=== PATIENT | female | born 2000 ===

== ENCOUNTER 2024-02-08 07:40 | Observation (INO) ==
[2024-02-08] MEDS ORDERED: IOPAMIDOL 100 ML BOTTLE IV ONE (07:41)
[2024-02-08] MEDS: KETOROLAC 15 MG/ML VIAL IV ONE (08:12)
[2024-02-08 08:15] LABS: Basophils # (Auto) 0.02 K/mcL (0.00-0.30); Basophils % (Auto) 0.1 % (0.0-2.0); Eosinophils # (Auto) 0.01 K/mcL (0.00-0.70); Eosinophils % (Auto) 0 % (0.0-7.0); Hematocrit 41.2 % (34.1-44.9); Hemoglobin 13.6 g/dL (11.2-15.7); Lymphocytes # (Auto) 1.75 K/mcL (1.50-4.80); Lymphocytes % (Auto) 6.5 % (15.5-49.0); Mean Cell Volume 87.5 fL (80.0-100.0); Monocytes # (Auto) 1.32 K/mcL (0.10-0.90); Monocytes % (Auto) 4.9 % (1.0-12.0); Neutrophils % (Auto) 88.1 % (38.0-78.0); Platelet Count 302 K/mcL (140-440); RBC 4.71 M/mcL (3.59-5.38); Red Cell Distribution Width 12.3 % (11.5-14.5)
[2024-02-08 08:42] LABS: ALT/SGPT < 5 U/L (<40); AST/SGOT 11 U/L (<32); Albumin 4.1 gm/dL (3.2-5.2); Alkaline Phosphatase 76 U/L (39-117); Blood Urea Nitrogen 16 mg/dL (6-20); Calcium 9.8 mg/dL (8.6-10.4); Carbon Dioxide 24 mmol/L (22-30); Chloride 98 mmol/L (96-108); Globulin 4.3 gm/dL (2.2-3.7); Glomerular Filtration Rate 91; Glucose 113 mg/dL (70-105); Potassium 3.8 mmol/L (3.3-5.1); Sodium 134 mmol/L (133-145)
[2024-02-08] MEDS: PIPERACILLIN SODIUM/TAZOBACTAM 4.5 GM in DEXTROSE 5% IN WATER 50 ML IV ONE (09:22)
[2024-02-08] MEDS: AMPICILLIN SODIUM/SULBACTAM NA 3 GM in 0.9 % SODIUM CHLORIDE 100 ML IV SCH (09:42)
[2024-02-08] MEDS: 0.9 % SODIUM CHLORIDE 100 ML IV ONE (09:42)
[2024-02-08] MEDS: morphine 4 MG/ML VIAL IV ONE (09:46)
[2024-02-08] MEDS: HYDROmorphone 0.5 MG/0.5 ML SYRINGE IV ONE (11:05)
[2024-02-08] MEDS ORDERED: PROPOFOL 200 MG/20 ML VIAL IV ONE (11:18)
[2024-02-08] MEDS ORDERED: KETAMINE 50 MG/ML Syringe IV ONE (11:18)
[2024-02-08] MEDS ORDERED: ROCURONIUM 10 MG/ML ML IV ONE (11:19)
[2024-02-08] MEDS ORDERED: ONDANSETRON 4 MG/2 ML VIAL ONE (11:19)
[2024-02-08] MEDS ORDERED: DEXAMETHASONE 10 MG/ML VIAL ONE (11:19)
[2024-02-08] MEDS ORDERED: LIDOCAINE 2% PF 5 ML VIAL ONE (11:19)
[2024-02-08] MEDS: LIDOCAINE W/EPI 1% 20 ML VIAL IJ ONE (11:50)
[2024-02-08] MEDS ORDERED: DROPERIDOL 5 MG/2 ML VIAL IV PRN (11:59)
[2024-02-08] MEDS ORDERED: diphenhydrAMINE 50 MG/ML VIAL IV PRN (11:59)
[2024-02-08] MEDS ORDERED: NALOXONE HCL 0.4 MG/ML VIAL IV PRN (11:59)
[2024-02-08] MEDS ORDERED: ONDANSETRON 4 MG/2 ML VIAL IV PRN (11:59)
[2024-02-08] MEDS ORDERED: fentaNYL 100 MCG/2 ML VIAL IV PRN (11:59)
[2024-02-08] MEDS ORDERED: LACTATED RINGERS 250 ML IV PRN (11:59)
[2024-02-08] MEDS ORDERED: MEPERIDINE 25 MG/ML VIAL IV PRN (11:59)
[2024-02-08] MEDS ORDERED: HYDROmorphone 0.5 MG/0.5 ML SYRINGE IV PRN (11:59)
[2024-02-08] MEDS ORDERED: SUGAMMADEX SODIUM 200 MG/2 ML VIAL IV ONE (12:02)
[2024-02-08] MEDS: ACETAMINOPHEN 1,000 MG/100 ML BAG IV ONE (12:18)
[2024-02-08] MEDS: IPRATROPIUM/ALBUTEROL 3 ML AMPUL.NEB NEB PRN (12:20)
[2024-02-08] MEDS: DIAZEPAM 10 MG/2 ML SYRINGE IV ONE (12:35)
[2024-02-08] MEDS: KETOROLAC 30 MG/ML VIAL IV PRN (12:44)
[2024-02-08] MEDS: HYDROcodone/APAP 7.5MG/15ML 15 ML UDC PO PRN ×2 (13:26→19:05)
[2024-02-08] MEDS: LACTATED RINGERS 1,000 ML IV SCH (13:39)
[2024-02-08] MEDS: DIAZEPAM 10 MG/2 ML SYRINGE ONE (13:51)
[2024-02-08] MEDS ORDERED: SENNOSIDES 1 TABLET PO PRN (14:51)
[2024-02-08] MEDS ORDERED: POLYETHYLENE GLYCOL 3350 17 GM PACKET PO PRN (14:51)
[2024-02-08] MEDS ORDERED: ACETAMINOPHEN 325 MG TABLET PO PRN (14:51)
[2024-02-08] MEDS: morphine 4 MG/ML VIAL IV PRN (20:00)
[2024-02-08] MEDS: ONDANSETRON 4 MG/2 ML VIAL IV PRN (20:04)
[2024-02-08] MEDS: OSELTAMIVIR PHOSPHATE 75 MG CAPSULE PO SCH (20:04)
[2024-02-08] MEDS: 0.9 % SODIUM CHLORIDE 10 ML SYRINGE IV SCH (21:38)
[2024-02-08] MEDS: KETOROLAC 15 MG/ML VIAL IV SCH (23:12)
[2024-02-09 06:45] LABS: Basophils # (Auto) 0.01 K/mcL (0.00-0.30); Basophils % (Auto) 0 % (0.0-2.0); Eosinophils # (Auto) 0 K/mcL (0.00-0.70); Eosinophils % (Auto) 0 % (0.0-7.0); Hematocrit 37.7 % (34.1-44.9); Lymphocytes # (Auto) 1.02 K/mcL (1.50-4.80); Lymphocytes % (Auto) 4.8 % (15.5-49.0); Mean Cell Volume 90.2 fL (80.0-100.0); Mean Corpuscular HGB Conc 31.8 g/dL (31.0-36.0); Mean Platelet Volume 10.1 fL (8.8-12.5); Monocytes # (Auto) 0.76 K/mcL (0.10-0.90); Monocytes % (Auto) 3.6 % (1.0-12.0); Neutrophils % (Auto) 90.9 % (38.0-78.0); Platelet Count 283 K/mcL (140-440); RBC 4.18 M/mcL (3.59-5.38); Red Cell Distribution Width 12.5 % (11.5-14.5); WBC 21.3 K/mcL (4.5-11.0)
== END 2024-02-09 13:19 | disposition home or self-care (01) ==
LOC: ED 07:40 → MEDSUR 11:23 → SUR 11:23 → MEDSUR 13:04
PROVIDERS: ADMIT Internal Medicine; ATTEND Internal Medicine